=== PATIENT | female | born 1950 | race Caucasian/White ===

== ENCOUNTER 2022-06-19 20:10 | Emergency (ER) | payer MEDICARE, SELFPAY ==
--- NOTE | ~2022-06-19 | CT_ITS ---
EXAMINATION: CT HEAD WITHOUT CONTRAST CLINICAL INFORMATION: Shortness of breath COMPARISON: None TECHNIQUE: Contiguous axial imaging was performed from the skull base to vertex without intravenous administration of contrast. This CT examination was performed using dose optimization techniques as appropriate, variously including the following: *Automated exposure control *Adjustment of mA and/or kV according to patient size (this includes techniques or standardized protocols for targeted exams where dose is matched to indication/reason for exam; i.e. extremities or head) *Use of iterative reconstruction technique DLP: 580 mGy-cm FINDINGS: There is no evidence of acute intracranial hemorrhage or territorial infarction. No abnormal mass-effect or midline shift is seen. Gupta to white matter differentiation is well preserved. No extra-axial fluid collections are identified. The ventricles are normal in size. There is no abnormal attenuation within the brain parenchyma. The osseous structures and soft tissues are normal. The mastoid air cells and visualized portions of the paranasal sinuses are well-aerated. CT/CT head/brain wo IV con IMPRESSION: No acute intracranial pathology.
[2022-06-19 20:13] VITALS: BP 219/116; PULSE 93; RESP 18; TEMP 36.9; O2SAT 97; BMI 25.9
--- NOTE | 2022-06-19 20:14 | ED_ITS ---
HPI - Headache General Chief Complaint: General Medical <DL Cruz - Last Filed: 06/19/22 20:19> Stated Complaint: high blood pressure <DL Cruz - Last Filed: 06/19/22 20:19> Time Seen by Provider: 06/19/22 20:21 <DL Cruz - Last Filed: 06/19/22 20:19> Source: patient <Luciano Ba MD - Last Filed: 06/20/22 01:56> Mode of arrival: ambulatory <Luciano Ba MD - Last Filed: 06/20/22 01:56> Limitations: no limitations <Luciano Ba MD - Last Filed: 06/20/22 01:56> History of Present Illness HPI Narrative: Patient with history of hypertension used to be on 10 mg of lisinopril and 12.5 mg hydrochlorothiazide 3 weeks ago her sodium was low so PCP did stop the hydrochlorothiazide and increased the dose of lisinopril 10 mg twice daily for last 3 weeks patient blood pressure been fluctuating with severe headache all over the head started at 1600 with slight nausea no vomiting feels light sensiti vity, no chest pain no palpitation and no focal weakness no leg swelling BP 224/ 116, 2nd blood pressure 219/116. Patient usual blood pressure used to be 120 systolic <Luciano Ba MD - Last Filed: 06/20/22 01:56> Related Data Home Medications: Previous Rx's Medication Instructions Recorded amlodipine 5 mg tablet 5 mg PO DAILY #30 tabs 06/20/22 <DL Cruz - Last Filed: 06/19/22 20:19> Allergies/Adverse Reactions: Allergies Allergy/AdvReac Type Severity Reaction Status Date / Time Fish Containing Products Allergy Severe Anaphylaxis Verified 06/19/22 20:15 shellfish derived Allergy Severe Anaphylaxis Verified 06/19/22 20:15 eggs Allergy Intermediate Hives Uncoded 06/19/22 20:15 <DL Cruz - Last Filed: 06/19/22 20:19> Review of Systems Review of Systems: Yes all other systems are reviewed and are negative <Luciano Ba MD - Last Filed: 06/20/22 01:56> [facility] Past Medical History Medical History: Medical History Hypertension Hyponatremia <DL Cruz - Last Filed: 06/19/22 20:19> Social History Social History: Social History Advance Directives: No Advance Directives Information Provided: No <DL Cruz - Last Filed: 06/19/22 20:19> Physical Exam Vital Signs: Vital Signs: Last Vital Signs Temp 98.4 F 06/19/22 20:13 Pulse 73 06/20/22 00:23 Resp 14 06/20/22 00:23 BP 180/91 H 06/20/22 00:23 Pulse Ox 94 06/20/22 00:23 O2 Del Method 06/20/22 00:23 BMI result Body Mass Index 25.9 <DL Cruz - Last Filed: 06/19/22 20:19> Vital Signs: Last Vital Signs Temp 98.4 F 06/19/22 20:13 Pulse 73 06/20/22 00:23 Resp 14 06/20/22 00:23 BP 180/91 H 06/20/22 00:23 Pulse Ox 94 06/20/22 00:23 O2 Del Method 06/20/22 00:23 BMI result Body Mass Index 25.9 <Luciano Ba MD - Last Filed: 06/20/22 01:56> Appearance: Alert. Oriented X3. No acute distress. Eyes: PERRLA, No Nystagmus ENT: Pharynx normal. Oral Mucosa moist Neck: Normal inspection. Neck supple. CVS: Normal heart rate and rhythm. Pulses normal. Respiratory: No respiratory distress. Equal air entry bilateral, no wheezing/rales/rhonchi Abdomen: Soft and nontender. Bowel sounds are present, no mass palpable, no CVA tenderness Skin: Skin warm and dry. Normal skin color. Normal skin turgor. Extremities: No lower extremity edema. No calf tenderness Neuro: Oriented X 3. No motor deficit. No sensory deficit.No cerebellar signs , cranial nerves II-XII intact <Luciano Ba MD - Last Filed: 06/20/22 01:56> Course Course Course Narrative: 2018 71-year-old female presents to the emergency complaints of hypertension, severe headache sudden onset at around 16:00. Patient reports recent changes to her blood pressure medication. Denies vision changes, dizziness, trauma. Does have some associated shortness of breath. Took 10 mg of lisinipril this am. Physical examination with elevated blood pressure initial blood pressure 224/ 116, 2nd blood pressure 219/116. NIH stroke scale 0. Plan- get patient back to department suspected hypertensive urgency <DL Cruz - Last Filed: 06/19/22 20:19> Medications Administered Discontinued Medications Generic Name Dose Route Start Last Admin Trade Name Freq PRN Reason Stop Dose Admin Ketorolac Tromethamine 30 mg 06/20/22 00:06 06/20/22 00:19 Ketorolac Tromethamine 30 Mg/Ml Vial IVPUSH 06/20/22 00:07 30 mg ONCE ONE Administration Labetalol HCl 20 mg 06/19/22 20:32 06/19/22 20:48 Labetalol Hcl 100 Mg/20 Ml Vial IVPUSH 06/19/22 20:33 20 mg ONCE ONE Administration Lisinopril 10 mg 06/19/22 23:13 06/19/22 23:16 Lisinopril 10 Mg Tablet PO 06/19/22 23:14 10 mg ONCE ONE Administration Protocol Morphine Sulfate 2 mg 06/19/22 22:43 06/19/22 22:54 Morphine Sulfate 2 Mg/Ml Cartridge IVPUSH 06/19/22 22:44 2 mg ONCE ONE Administration Protocol Ondansetron HCl 4 mg 06/19/22 22:43 06/19/22 22:53 Ondansetron Hcl 4 Mg/2 Ml Vial IVPUSH 06/19/22 22:44 4 mg ONCE ONE Administration <DL Cruz - Last Filed: 06/19/22 20:19> Medications Administered Discontinued Medications Generic Name Dose Route Start Last Admin Trade Name Freq PRN Reason Stop Dose Admin Ketorolac Tromethamine 30 mg 06/20/22 00:06 06/20/22 00:19 Ketorolac Tromethamine 30 Mg/Ml Vial IVPUSH 06/20/22 00:07 30 mg ONCE ONE Administration Labetalol HCl 20 mg 06/19/22 20:32 06/19/22 20:48 Labetalol Hcl 100 Mg/20 Ml Vial IVPUSH 06/19/22 20:33 20 mg ONCE ONE Administration Lisinopril 10 mg 06/19/22 23:13 06/19/22 23:16 Lisinopril 10 Mg Tablet PO 06/19/22 23:14 10 mg ONCE ONE Administration Protocol Morphine Sulfate 2 mg 06/19/22 22:43 06/19/22 22:54 Morphine Sulfate 2 Mg/Ml Cartridge IVPUSH 06/19/22 22:44 2 mg ONCE ONE Administration Protocol Ondansetron HCl 4 mg 06/19/22 22:43 06/19/22 22:53 Ondansetron Hcl 4 Mg/2 Ml Vial IVPUSH 06/19/22 22:44 4 mg ONCE ONE Administration <Luciano Ba MD - Last Filed: 06/20/22 01:56> Medical Decision Making Medical Decision Making [facility] Narrative: Patient's CT scan of the head was negative has headache with light sensitivity likely has complex migraine blood pressure has 148/76. <Luciano Ba MD - Last Filed: 06/20/22 01:56> Differential Diagnosis Differential Diagnoses: The differential diagnosis associated with the presentation includes <Luciano Ba MD - Last Filed: 06/20/22 01:56> sah/migraine <Luciano Ba MD - Last Filed: 06/20/22 01:56> Lab Data [facility] Lab Attestation statement: I reviewed the patient's lab results. <Luciano Ba MD - Last Filed: 06/20/22 01:56> Result Diagrams: : 06/19/22 20:38 06/19/22 20:38 <DL Cruz - Last Filed: 06/19/22 20:19> Labs: Lab Results 06/19/22 06/19/22 06/19/22 Range/Units 20:38 20:38 20:38 WBC 7.7 (4.8-10.8) X10*3/uL RBC 4.56 (4.20-5.50) X10*6/uL Hgb 13.9 (12.0-16.0) g/dl Hct 41.5 (37.0-47.0) % MCV 91.0 (80.0-98.0) fL MCH 30.5 (27.0-33.0) pg MCHC 33.5 (31.0-35.0) g/dl RDW 14.1 (11.0-16.0) % Plt Count 267 (160-400) X10*3/uL MPV 9.9 (9.4-12.3) fL Immature Gran % (Auto) 0.4 (0.0-0.4) % Neut % (Auto) 54.0 (45-73) % Lymph % (Auto) 30.4 (20-40) % Ogle % (Auto) 10.4 (2-11) % Eos % (Auto) 3.9 (0-4) % Baso % (Auto) 0.9 (0-2) % Lymph # (Auto) 2.3 (1.2-4.9) X10*3/uL Ogle # (Auto) 0.8 (0.1-1.2) X10*3/uL Eos # (Auto) 0.3 (0.0-0.4) X10*3/uL Baso # (Auto) 0.1 (0.0-0.2) X10*3/uL Abs Immat Gran (auto) 0.03 (0.00-0.03) X10*3/uL Absolute Neuts (auto) 4.2 (2.0-8.3) x10*3/uL Absolute Nucleated RBC 0.000 (0.0-0.012) X10*3/uL Nucleated RBC % (auto) 0.0 (0.0-0.2) /100WBC Sodium 138 (135-145) mmol/L Potassium 3.9 (3.3-5.1) mmol/L Chloride 102 (96-108) mmol/L Carbon Dioxide 24 (22-29) mmol/L Anion Gap 16 (12-20) BUN 15 (9-16) mg/dL Creatinine 0.73 (0.5-1.4) mg/dL Estim Creat Clear Calc 58.0 Estimated GFR > 60 Random Glucose 100 (60-115) mg/dL Calcium 10.0 (8.4-10.2) mg/dL Magnesium 2.0 (1.6-2.6) mg/dL Total Bilirubin 0.6 (0.0-1.0) mg/dL AST 30 (5-31) U/L ALT 25 (0-31) U/L Alkaline Phosphatase 103 (39-117) U/L Troponin I High Sens (<3.5-17.0) ng/L B-Natriuretic Peptide 140 H (<100) pg/mL Total Protein 7.8 (6.5-8.0) g/dL Albumin 4.8 (3.5-5.0) g/dL Urine Color Urine Appearance Urine pH (5.0-9.0) Ur Specific Godley (1.005-1.025) Urine Protein (Neg-Trace) mg/dL Urine Glucose (UA) (Negative) mg/dL Urine Ketones (Negative) mg/dL Urine Blood (Negative) Urine Nitrite (Negative) Ur Leukocyte Esterase (Negative) Urine RBC (0-2) /HPF Urine WBC (0-5) /HPF Ur Squamous Epith Cells (0-2) /HPF Urine Bacteria (None Seen) Hyaline Casts (0-2) /LPF Influenza Type A (PCR) (Negative) Influenza Type B (PCR) (Negative) RSV RNA Qual (PCR) (Negative) SARS-CoV-2 RNA (RT-PCR) (Negative) 06/19/22 06/19/22 06/20/22 Range/Units 20:38 20:51 00:18 WBC (4.8-10.8) X10*3/uL RBC (4.20-5.50) X10*6/uL Hgb (12.0-16.0) g/dl Hct (37.0-47.0) % MCV (80.0-98.0) fL MCH (27.0-33.0) pg MCHC (31.0-35.0) g/dl RDW (11.0-16.0) % Plt Count (160-400) X10*3/uL MPV (9.4-12.3) fL Immature Gran % (Auto) (0.0-0.4) % Neut % (Auto) (45-73) % Lymph % (Auto) (20-40) % Ogle % (Auto) (2-11) % Eos % (Auto) (0-4) % Baso % (Auto) (0-2) % Lymph # (Auto) (1.2-4.9) X10*3/uL Ogle # (Auto) (0.1-1.2) X10*3/uL Eos # (Auto) (0.0-0.4) X10*3/uL Baso # (Auto) (0.0-0.2) X10*3/uL Abs Immat Gran (auto) (0.00-0.03) X10*3/uL Absolute Neuts (auto) (2.0-8.3) x10*3/uL Absolute Nucleated RBC (0.0-0.012) X10*3/uL Nucleated RBC % (auto) (0.0-0.2) /100WBC Sodium (135-145) mmol/L Potassium (3.3-5.1) mmol/L Chloride (96-108) mmol/L Carbon Dioxide (22-29) mmol/L Anion Gap (12-20) BUN (9-16) mg/dL Creatinine (0.5-1.4) mg/dL Estim Creat Clear Calc Estimated GFR Random Glucose (60-115) mg/dL Calcium (8.4-10.2) mg/dL Magnesium (1.6-2.6) mg/dL Total Bilirubin (0.0-1.0) mg/dL AST (5-31) U/L ALT (0-31) U/L Alkaline Phosphatase (39-117) U/L Troponin I High Sens < 3.5 (<3.5-17.0) ng/L B-Natriuretic Peptide (<100) pg/mL Total Protein (6.5-8.0) g/dL Albumin (3.5-5.0) g/dL Urine Color Yellow Urine Appearance Clear Urine pH 7.0 (5.0-9.0) Ur Specific Godley 1.010 (1.005-1.025) Urine Protein Negative (Neg-Trace) mg/dL Urine Glucose (UA) Negative (Negative) mg/dL Urine Ketones Negative (Negative) mg/dL Urine Blood Trace H (Negative) Urine Nitrite Negative (Negative) Ur Leukocyte Esterase Negative (Negative) Urine RBC 3-5 H (0-2) /HPF Urine WBC 0-5 (0-5) /HPF Ur Squamous Epith Cells 0-2 (0-2) /HPF Urine Bacteria None Seen (None Seen) Hyaline Casts 0-2 (0-2) /LPF Influenza Type A (PCR) NEGATIVE (Negative) Influenza Type B (PCR) NEGATIVE (Negative) RSV RNA Qual (PCR) NEGATIVE (Negative) SARS-CoV-2 RNA (RT-PCR) NEGATIVE (Negative) <DL Cruz - Last Filed: 06/19/22 20:19> Lab Results 06/19/22 06/19/22 06/19/22 Range/Units 20:38 20:38 20:38 WBC 7.7 (4.8-10.8) X10*3/uL RBC 4.56 (4.20-5.50) X10*6/uL Hgb 13.9 (12.0-16.0) g/dl Hct 41.5 (37.0-47.0) % MCV 91.0 (80.0-98.0) fL MCH 30.5 (27.0-33.0) pg MCHC 33.5 (31.0-35.0) g/dl RDW 14.1 (11.0-16.0) % Plt Count 267 (160-400) X10*3/uL MPV 9.9 (9.4-12.3) fL Immature Gran % (Auto) 0.4 (0.0-0.4) % Neut % (Auto) 54.0 (45-73) % Lymph % (Auto) 30.4 (20-40) % Ogle % (Auto) 10.4 (2-11) % Eos % (Auto) 3.9 (0-4) % Baso % (Auto) 0.9 (0-2) % Lymph # (Auto) 2.3 (1.2-4.9) X10*3/uL Ogle # (Auto) 0.8 (0.1-1.2) X10*3/uL Eos # (Auto) 0.3 (0.0-0.4) X10*3/uL Baso # (Auto) 0.1 (0.0-0.2) X10*3/uL Abs Immat Gran (auto) 0.03 (0.00-0.03) X10*3/uL Absolute Neuts (auto) 4.2 (2.0-8.3) x10*3/uL Absolute Nucleated RBC 0.000 (0.0-0.012) X10*3/uL Nucleated RBC % (auto) 0.0 (0.0-0.2) /100WBC Sodium 138 (135-145) mmol/L Potassium 3.9 (3.3-5.1) mmol/L Chloride 102 (96-108) mmol/L Carbon Dioxide 24 (22-29) mmol/L Anion Gap 16 (12-20) BUN 15 (9-16) mg/dL Creatinine 0.73 (0.5-1.4) mg/dL Estim Creat Clear Calc 58.0 Estimated GFR > 60 Random Glucose 100 (60-115) mg/dL Calcium 10.0 (8.4-10.2) mg/dL Magnesium 2.0 (1.6-2.6) mg/dL Total Bilirubin 0.6 (0.0-1.0) mg/dL AST 30 (5-31) U/L ALT 25 (0-31) U/L Alkaline Phosphatase 103 (39-117) U/L Troponin I High Sens (<3.5-17.0) ng/L B-Natriuretic Peptide 140 H (<100) pg/mL Total Protein 7.8 (6.5-8.0) g/dL Albumin 4.8 (3.5-5.0) g/dL Urine Color Urine Appearance Urine pH (5.0-9.0) Ur Specific Godley (1.005-1.025) Urine Protein (Neg-Trace) mg/dL Urine Glucose (UA) (Negative) mg/dL Urine Ketones (Negative) mg/dL Urine Blood (Negative) Urine Nitrite (Negative) Ur Leukocyte Esterase (Negative) Urine RBC (0-2) /HPF Urine WBC (0-5) /HPF Ur Squamous Epith Cells (0-2) /HPF Urine Bacteria (None Seen) Hyaline Casts (0-2) /LPF Influenza Type A (PCR) (Negative) Influenza Type B (PCR) (Negative) RSV RNA Qual (PCR) (Negative) SARS-CoV-2 RNA (RT-PCR) (Negative) 06/19/22 06/19/22 06/20/22 Range/Units 20:38 20:51 00:18 WBC (4.8-10.8) X10*3/uL RBC (4.20-5.50) X10*6/uL Hgb (12.0-16.0) g/dl Hct (37.0-47.0) % MCV (80.0-98.0) fL MCH (27.0-33.0) pg MCHC (31.0-35.0) g/dl RDW (11.0-16.0) % Plt Count (160-400) X10*3/uL MPV (9.4-12.3) fL Immature Gran % (Auto) (0.0-0.4) % Neut % (Auto) (45-73) % Lymph % (Auto) (20-40) % Ogle % (Auto) (2-11) % Eos % (Auto) (0-4) % Baso % (Auto) (0-2) % Lymph # (Auto) (1.2-4.9) X10*3/uL Ogle # (Auto) (0.1-1.2) X10*3/uL Eos # (Auto) (0.0-0.4) X10*3/uL Baso # (Auto) (0.0-0.2) X10*3/uL Abs Immat Gran (auto) (0.00-0.03) X10*3/uL Absolute Neuts (auto) (2.0-8.3) x10*3/uL Absolute Nucleated RBC (0.0-0.012) X10*3/uL Nucleated RBC % (auto) (0.0-0.2) /100WBC Sodium (135-145) mmol/L Potassium (3.3-5.1) mmol/L Chloride (96-108) mmol/L Carbon Dioxide (22-29) mmol/L Anion Gap (12-20) BUN (9-16) mg/dL Creatinine (0.5-1.4) mg/dL Estim Creat Clear Calc Estimated GFR Random Glucose (60-115) mg/dL Calcium (8.4-10.2) mg/dL Magnesium (1.6-2.6) mg/dL Total Bilirubin (0.0-1.0) mg/dL AST (5-31) U/L ALT (0-31) U/L Alkaline Phosphatase (39-117) U/L Troponin I High Sens < 3.5 (<3.5-17.0) ng/L B-Natriuretic Peptide (<100) pg/mL Total Protein (6.5-8.0) g/dL Albumin (3.5-5.0) g/dL Urine Color Yellow Urine Appearance Clear Urine pH 7.0 (5.0-9.0) Ur Specific Godley 1.010 (1.005-1.025) Urine Protein Negative (Neg-Trace) mg/dL Urine Glucose (UA) Negative (Negative) mg/dL Urine Ketones Negative (Negative) mg/dL Urine Blood Trace H (Negative) Urine Nitrite Negative (Negative) Ur Leukocyte Esterase Negative (Negative) Urine RBC 3-5 H (0-2) /HPF Urine WBC 0-5 (0-5) /HPF Ur Squamous Epith Cells 0-2 (0-2) /HPF Urine Bacteria None Seen (None Seen) Hyaline Casts 0-2 (0-2) /LPF Influenza Type A (PCR) NEGATIVE (Negative) Influenza Type B (PCR) NEGATIVE (Negative) RSV RNA Qual (PCR) NEGATIVE (Negative) SARS-CoV-2 RNA (RT-PCR) NEGATIVE (Negative) <Luciano Ba MD - Last Filed: 06/20/22 01:56> Discharge Plan Discharge Clinical Impression: Hypertension, uncontrolled, Headache, migraine <DL Cruz - Last Filed: 06/19/22 20:19> Patient Disposition: Home, Self-Care <DL Cruz - Last Filed: 06/19/22 20:19> Instructions: Migraine Headache (ED), Chronic Hypertension (ED) <DL Cruz Last Filed: 06/19/22 20:19> Additional Instructions: Continue your lisinopril 10 mg twice daily Add amlodipine 5 mg daily in the morning for better blood pressure control. Your blood pressure should be less than 135/85 Tylenol/Motrin for the headache likely migraine Follow with PCP <DL Cruz Last Filed: 06/19/22 20:19> Prescriptions: New amlodipine 5 mg tablet 5 mg PO DAILY Qty: 30 0RF <DL Cruz - Last Filed: 06/19/22 20:19> Interventions: ED Discharge Assessment Last Done: 06/20/22 01:24 <DL Cruz - Last Filed: 06/19/22 20:19> Discharge Date/Time: 06/20/22 01:25 <DL Cruz - Last Filed: 06/19/22 20:19>
--- NOTE | 2022-06-19 20:15 | ECG_ITS ---
Test Reason : HYPERTENSION Blood Pressure : / mmHG Vent. Rate : 077 BPM Atrial Rate : 077 BPM P-R Int : 180 ms QRS Dur : 080 ms QT Int : 382 ms P-R-T Axes : 061 018 026 degrees QTc Int : 432 ms Sinus rhythm Otherwise normal ECG No previous ECGs available Referred By: Veena Hough Electronically Signed By:PRINCE OLMOS MD
[2022-06-19 20:28] VITALS: BP 193/106; PULSE 88; RESP 20; O2SAT 98
[2022-06-19 20:45] LABS: MANUAL DIFF FLAG NO
[2022-06-19 20:47] LABS: Basophils Absolute Auto 0.1 X10*3/uL (0.0-0.2); Basophils Percent Auto 0.9 % (0-2); Eosinophils Absolute Auto 0.3 X10*3/uL (0.0-0.4); Eosinophils Percent Auto 3.9 % (0-4); Hematocrit 41.5 % (37.0-47.0); Hemoglobin 13.9 g/dl (12.0-16.0); Imm Gran Abs Auto 0.03 X10*3/uL (0.00-0.03); Imm Gran Pct Auto 0.4 % (0.0-0.4); Lymphocytes Absolute Auto 2.3 X10*3/uL (1.2-4.9); Lymphocytes Percent Auto 30.4 % (20-40); Mean Corpuscular HGB Conc 33.5 g/dl (31.0-35.0); Mean Corpuscular Hemoglobin 30.5 pg (27.0-33.0); Mean Platelet Volume 9.9 fL (9.4-12.3); Monocytes Absolute Auto 0.8 X10*3/uL (0.1-1.2); Monocytes Percent Auto 10.4 % (2-11); Neutrophils Absolute Auto 4.2 x10*3/uL (2.0-8.3); Platelet Count 267 X10*3/uL (160-400); Red Blood Count 4.56 X10*6/uL (4.20-5.50); Red Cell Distribution Width 14.1 % (11.0-16.0); White Blood Count 7.7 X10*3/uL (4.8-10.8)
[2022-06-19] MEDS: Labetalol HCL 100 MG/20 ML VIAL 20 MG IVPUSH (20:48)
[2022-06-19 20:58] LABS: Appearance Urine Clear; Color Urine Yellow; Glucose Urine UA Negative (Negative); Leukocyte Esterase Urine Negative (Negative); Nitrite Urine Negative (Negative); UMIC TRIGGER UACC YES; Urine Blood Trace (Negative); Urine Ketones Negative (Negative); Urine Protein Negative (Neg-Trace)
--- NOTE | 2022-06-19 20:59 | PC.NURSE ---
this rn assumed care of pt at 2029. at bedside. iv placed. pt hooked up to spray drier. blood work obtained and sent down to lab. pt medicated according to elisabet
[2022-06-19 21:03] LABS: Bacteria Urine None Seen (None Seen); Hyaline Casts Urine 0-2 /LPF (0-2); Squamous Epithelial Cell Urine 0-2 /HPF (0-2); WBC Urine 0-5 /HPF (0-5)
[2022-06-19 21:13] LABS: B Type Natriuretic Peptide 140 pg/mL (<100)
[2022-06-19 21:14] LABS: Alanine Aminotransferase 25 U/L (0-31); Albumin Level 4.8 g/dL (3.5-5.0); Alkaline Phosphatase 103 U/L (39-117); Anion Gap 16 (12-20); Aspartate Amino Transferase 30 U/L (5-31); Bilirubin Total 0.6 mg/dL (0.0-1.0); Blood Urea Nitrogen 15 mg/dL (9-16); Carbon Dioxide 24 mmol/L (22-29); Chloride 102 mmol/L (96-108); Estimated Glomerular Filt Rate > 60; Glucose Random 100 mg/dL (60-115); Potassium 3.9 mmol/L (3.3-5.1); Sodium 138 mmol/L (135-145); Total Protein 7.8 g/dL (6.5-8.0); Troponin-I High Sensitivity < 3.5 ng/L (<3.5-17.0)
[2022-06-19 21:45] VITALS: BP 170/79; PULSE 65
[2022-06-19 22:16] VITALS: BP 172/87; PULSE 63
[2022-06-19] MEDS: ondansetron HCL 4 MG/2 ML VIAL IVPUSH (22:53)
[2022-06-19] MEDS: Morphine Sulfate 2 MG/ML CARTRIDGE IVPUSH (22:54)
[2022-06-19 23:07] VITALS: BP 172/94; PULSE 70; RESP 21; O2SAT 95
--- NOTE | 2022-06-19 23:11 | PC.NURSE ---
received report from WANDY [place]. Pt blood pressure steadily trending upwards again. notified. Pt states she has a 5/10 headache that feels like pressure building up.
[2022-06-19] MEDS: lisinopriL 10 MG TABLET PO (23:16)
--- NOTE | 2022-06-19 23:23 | PC.NURSE ---
Pt vomited small amount of brown/red vomitus. States this is the first time it happened today. MD aware, no new orders
[2022-06-20 00:09] VITALS: BP 195/90; PULSE 79; RESP 16; O2SAT 95
[2022-06-20] MEDS: Ketorolac Tromethamine 30 MG/ML VIAL IVPUSH (00:19)
[2022-06-20 00:23] VITALS: BP 180/91; PULSE 73; RESP 14; O2SAT 94
--- NOTE | 2022-06-20 00:36 | PC.NURSE ---
pt reporting increased headache, given IV toradol per MAR. Pt reports she is not feeling much better. pt reports that the tremors she is having are new. MD aware, no new orders at this time
[2022-06-20 00:58] LABS: Influenza A PCR NEGATIVE (Negative); Influenza B PCR NEGATIVE (Negative); Resp Syncy Virus RNA Qual PCR NEGATIVE (Negative); SARS COV2 PCR INHOUSE NEGATIVE (Negative)
== END 2022-06-20 01:25 | disposition home or self-care (01) ==
PROVIDERS: Physician Assistant; Emergency Provider Internal Medicine
DX: G43.909 Migraine, unspecified, not intractable, without status migrainosus (principal); I10 Essential (primary) hypertension; R06.02 Shortness of breath; Z20.822 Contact with and (suspected) exposure to COVID-19; Z79.899 Other long term (current) drug therapy
CPT/HCPCS: 0241U; 36415; 70450; 80053; 81001; 81003; 83735; 83880; 84484; 85025; 93005; 96374; 96375; 99284; J1885; J2270; J2405